=== PATIENT | male | born 1975 | race Caucasian/White ===

== ENCOUNTER 2017-11-17 21:53 | Emergency (ER) | payer BC ==
[~2017-11-17] VITALS: Ht 195.6 cm; Wt 84.0 kg
[2017-11-18 00:04] VITALS: BP 116/74
== END 2017-11-18 00:06 | disposition home or self-care (01) ==
LOC: EME 21:53
DX: S61.011A Laceration without foreign body of right thumb without damage to nail, initial encounter (principal); W31.2XXA Contact with powered woodworking and forming machines, initial encounter; Z23 Encounter for immunization; E11.9 Type 2 diabetes mellitus without complications; I25.10 Atherosclerotic heart disease of native coronary artery without angina pectoris
CPT/HCPCS: 99281; 99284; S0020